=== PATIENT | male | born 1970 | race Caucasian/White ===

== ENCOUNTER 2016-10-07 11:16 | Emergency (ER) | payer MEDICAID ==
[~2016-10-07] VITALS: Wt 69.0 kg
[~2016-10-07 11:16] MED LIST: NAPR-260 PO
[2016-10-07] MEDS ORDERED: KETOROLAC 30 MG INJ IM STA (15:48)
--- NOTE | 2016-10-07 15:56 | ERD ---
ER Documentation Chief Complaint Date/Time DATE: 10/07/16 TIME: 15:53 Chief Complaint low back pain chronic , no recent injury,pain meds not working HPI This 46-year-old male who presents the emergency department today complaining of back pain for the past 8 months that is worse today. Patient states that it injury at work and is going through Worker's Comp. States that the pain in his back became worse 3 days ago. States he takes Relafen and Ambien for pain and to help him sleep. States he called his primary care doctor today but he is unable to get in until next week. Denies any fevers or chills, loss of bowel or bladder control or pain down into his leg. Denies any new trauma. ROS All systems reviewed and are negative except as per history of present illness. Medications Home Meds Active Scripts Tramadol HCl (Tramadol HCl) 50 Mg Tablet, 50 MG PO Q4 Y for PAIN, #20 TAB Prov:ERIC JAIME PA-C 10/07/16 Naproxen* (Naprosyn*) 500 Mg Tablet, 500 MG PO BID, #30 TAB Prov:SUBHASH OCONNOR PA-C 03/01/16 PMhx/Soc Medical and Surgical Hx: pt denies Surgical Hx Hx Alcohol Use: No Hx Substance Use: No Hx Tobacco Use: No Physical Exam Vitals Vital Signs Date Time Temp Pulse Resp B/P Pulse Ox O2 Delivery O2 Flow Rate FiO2 10/07/16 11:45 98.8 76 21 119/78 97 Physical Exam Const: No acute distress Head: Atraumatic Eyes: Normal Conjunctiva ENT: Normal External Ears, Nose and Mouth. Neck: Full range of motion..~ No meningismus. Resp: Clear to auscultation bilaterally Cardio: Regular rate and rhythm, no murmurs Back: Lumbar spine midline tenderness and right-sided paraspinal tenderness. Negative straight leg raise. Pulses 2+. Distal neurovascularly intact. Ext: No cyanosis, or edema Neur: Awake and alert Psych: Normal Mood and Affect Results 24 hrs Current Medications Medications (Trade) Dose Ordered Sig/Dung Route PRN Reason Start Time Stop Time Status Last Admin Dose Admin Ketorolac Tromethamine (Toradol) 30 mg ONCE STAT IM 10/07/16 15:48 10/07/16 15:49 DC 10/07/16 15:54 Procedures/MDM This 46-year-old male who presents to the emergency department today complaining of back pain the past 8 months that is worsened over the past couple of days. Patient does have some mild midline tenderness and right-sided paraspinal tenderness however there has been no new trauma. Patient has had x- rays and MRIs and is being followed for Worker's Compensation at this time. I do not feel that the patient requires any new images as there has been no new trauma. Patient has no loss of bowel or bladder control is afebrile and otherwise well-appearing have low suspicion for cauda equina abscess. Patient symptoms at this time most consistent with chronic back pain secondary to injury. Patient was given a Toradol injection here in the emergency department. He may continue to take his Relafen for pain. I will give him a short course of tramadol for some breakthrough pain at this time. Patient is not taking any narcotics at this time and I do not have a concern for abuse at this time. This is the patient's first visit to this emergency department for back pain and only has second visit here to this emergency department for any complaints. I will also give him a list of referrals for Dr. Hernandez, card painter At this time the patient is stable for discharge and outpatient management. Patient should follow up with their PCP in the next 1-2 days. They may return to the emergency department sooner for any persistent or worsening of symptoms. Patient understood and agreed with the plan. Departure Diagnosis: Primary Impression: Back pain Back pain location: low back pain Chronicity: chronic Back pain laterality : right Sciatica presence: without sciatica Qualified Code: M54.5 - Chronic right-sided low back pain without sciatica Condition: ERIC Davies PA-C Oct 07, 2016 15:56
[2016-10-07] MEDS ORDERED: TRAM50TA2 PO (15:58)
[2016-10-07 16:08] VITALS: BP 125/68; PULSE 77; RESP 18
== END 2016-10-07 16:08 | disposition home or self-care (01) ==
LOC: FTE 11:16
DX: M54.5 Low back pain (principal)
CPT/HCPCS: 96372; J1885; Z7502

== ENCOUNTER 2017-07-29 10:56 | Emergency (ER) | END 2017-07-29 14:11 | disposition home or self-care (01) ==

== ENCOUNTER 2018-07-13 12:32 | Emergency (ER) | END 2018-07-13 13:43 | disposition home or self-care (01) ==